=== PATIENT | female | born 1985 | race Caucasian/White ===

== ENCOUNTER 2019-05-28 16:38 | Outpatient (CLI) | payer OTHER, SELFPAY ==
[2019-05-28 17:50] VITALS: BP 97/55; PULSE 95
== END 2019-05-28 18:00 | disposition home or self-care (01) ==
LOC: ANHOBOP 17:44 → ANHOBPP 17:46
PROVIDERS: Visit Provider Obstetrics & Gynecology
DX: Z36.89 Encounter for other specified antenatal screening (principal)
CPT/HCPCS: 59025; 84112; 99199

== ENCOUNTER 2019-06-19 13:38 | Outpatient (RCR) | payer OTHER, SELFPAY ==
[2019-05-29 16:51] VITALS: BP 125/77; PULSE 91
--- NOTE | ~2019-06-19 | US_ITS ---
EXAMINATION: US OB BPP wo non-stress DATE: 05/29/2019 16:36 INDICATION: Positive nonstress test. TECHNIQUE: Real-time pelvic ultrasound was performed. The interpreting radiologist was not present fo r the study. COMPARISON: None. FINDINGS: There is a single living fetus in vertex presentation. The placenta is posterior fundal. heart rate is 135 beats per minute (bpm). Biophysical profile performed by the technologist: breathing (30 sec sustained breathing in 30 minutes): 2 out of 2 movement (3 gross body movements in 30 minutes): 2 out of 2 tone (one episode of oubhctv-wfebkpbgs-ehxliic limb movement): 2 out of 2 Amniotic fluid pocket (2 cm): 2 out of 2 Total score: 8 out of 8 IMPRESSION: 1. Single living fetus in vertex presentation with heart rate of 135 bpm. 2. Biophysical profile 8 out of 8. Reviewed, dictated and finalized at location A. TIVE DEVELOPER
[2019-06-19 15:25] VITALS: BP 114/61; PULSE 76
== END 2019-06-29 07:59 | disposition home or self-care (01) ==
LOC: ANHOBOP 13:38
PROVIDERS: Visit Provider Obstetrics & Gynecology
DX: O26.893 Other specified pregnancy related conditions, third trimester (principal); Z3A.34 34 weeks gestation of pregnancy; O16.3 Unspecified maternal hypertension, third trimester; O76 Abnormality in fetal heart rate and rhythm complicating labor and delivery; Z3A.37 37 weeks gestation of pregnancy
CPT/HCPCS: 59025; 76819

== ENCOUNTER 2019-06-23 12:33 | Observation (INO) | payer OTHER, SELFPAY ==
[2019-06-23 13:01] VITALS: BP 112/72; PULSE 81
[2019-06-23 13:16] VITALS: BP 100/52; PULSE 78
--- NOTE | 2019-06-23 13:25 | OBADM ---
This patient, Matilda Gomes, admitted to the OB room Labor/Delivery/Recovery 119 for observation. Patient/family oriented to hospital policies and general routines including ID bracelet, bed and alarms, visiting hours, pain management, procedures, bathroom and other care routines, personal items, smoking policy, room service/diet, and visiting hours. Patient/Family are encouraged to report perceived risks to care and to ask questions if they do not understand what they are told or what they should do.
[2019-06-23 13:32] VITALS: BP 112/72; PULSE 82
--- NOTE | 2019-06-25 08:00 | PM.OBTRLD ---
OB - Triage/Final Diagnosis Final Diagnosis (1) False labor: Code(s): O47.9 - False labor, unspecified Status: Acute
== END 2019-06-23 13:40 | disposition home or self-care (01) ==
PROVIDERS: Admitting Provider Obstetrics & Gynecology; Visit Provider Obstetrics & Gynecology
DX: O47.1 False labor at or after 37 completed weeks of gestation (principal); Z3A.37 37 weeks gestation of pregnancy
CPT/HCPCS: 59025; G0378; G0379

== ENCOUNTER 2019-06-25 12:25 | Outpatient (CLI) | payer OTHER, SELFPAY ==
[2019-06-25 13:22] LABS: Hematocrit 35.5 % (37.0-47.0); Hemoglobin 11.8 g/dL (12.0-15.0); Mean Corpuscular HGB Conc 33.2 g/dl (32-36); Mean Corpuscular Hemoglobin 28.1 pg (26-34); Mean Corpuscular Volume 84.5 fl (80-100); Mean Platelet Volume 11.2 fl (7.4-10.4); Platelet Count Result 209 k/mm3 (150-375); Red Cell Distribution Width 14.6 % (11.5-14.5); White Blood Count 13.2 K/mm3 (4.5-10.0)
--- NOTE | 2019-06-25 16:12 | HP_ITS ---
DATE OF SERVICE: 06/26/2019 HISTORY: The patient is 33-year-old G4, P2-0-1-2 at 38 weeks and 0 days, being admitted for an elective repeat plus tubal ligation. She is being delivered at 38 weeks due to chronic hypertension. Her has been complicated by elevated blood pressure starting in the 1st early 2nd trimester, and she has had one value in the severe range, but in general they have been normal to mildly elevated. She denies headaches or visual changes. She is feeling occasional contractions. No vaginal bleeding. No leakage of fluid. MEDICAL HISTORY: Significant for hypertension. CURRENT MEDICATIONS: vitamin and ranitidine. ALLERGIES: NO KNOWN DRUG ALLERGIES. PAST SURGICAL HISTORY: x2 and laparoscopic cholecystectomy. OB HISTORY: She has had 2 and the 1st was for arrest of dilation and that baby weighed 9 pounds 3 ounces. The 2nd was an elective repeat and she has had 1 miscarriage. 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 SOCIAL HISTORY: Negative for tobacco, alcohol, or drug use. REVIEW OF SYSTEMS: Negative. PHYSICAL EXAMINATION: VITAL SIGNS: Her weight is 335, blood pressure 142/89. GENERAL: No apparent distress. HEART: Regular rate and rhythm. LUNGS: Clear to auscultation. ABDOMEN: Gravid, soft, nontender, nondistended. EXTREMITIES: Nontender with 1+ edema. ASSESSMENT AND PLAN: 1. G4, P2-0-1-2 at 38 weeks gestation with history of 2 prior C-sections and chronic hypertension. Plan is to proceed with repeat . 2. Chronic hypertension. Blood pressure in general is mildly elevated. She is asymptomatic. We will plan to watch her blood pressure closely and watch for any signs or symptoms of preeclampsia. 3. status is reassuring. 4. Desires sterilization. She signed consent on May 14 in the office for tubal ligation and has had expressed a continued desire for that, so we are planning to tie her tubes along with her . 5. GBS is negative. D I MT: Jovon
[2019-06-26 08:44] LABS: Rapid Plasma Reagin Non-Reactive (NonReactive)
== END 2019-06-25 12:26 | disposition home or self-care (01) ==
PROVIDERS: Visit Provider Obstetrics & Gynecology
DX: Z01.818 Encounter for other preprocedural examination (principal)
CPT/HCPCS: 36415; 85027; 86592; 86850; 86900; 86901

== ENCOUNTER 2019-06-26 09:46 | Inpatient (IN) | payer OTHER, SELFPAY ==
[2019-06-26] VITALS (49 sets, daily range): BP systolic 90–141; BP diastolic 49–98; PULSE 25–90; RESP 15–20; TEMP 35.9–36.3; O2SAT 82–100; BMI 56.9
--- NOTE | 2019-06-26 01:01 | HP_ITS ---
This report was moved to the correct visit, [id number], on June 30, 2019. Original report was signed by Dr. Mckenzie Lucero on June 26, 2019 at 0101. DATE OF SERVICE: 06/26/2019 HISTORY: The patient is 33-year-old G4, P2-0-1-2 at 38 weeks and 0 days, being admitted for an elective repeat plus tubal ligation. She is being delivered at 38 weeks due to chronic hypertension. Her has been complicated by elevated blood pressure starting in the 1st early 2nd trimester, and she has had one value in the severe range, but in general they have been normal to mildly elevated. She denies headaches or visual changes. She is feeling occasional contractions. No vaginal bleeding. No leakage of fluid. MEDICAL HISTORY: Significant for hypertension. CURRENT MEDICATIONS: vitamin and ranitidine. ALLERGIES: NO KNOWN DRUG ALLERGIES. PAST SURGICAL HISTORY: x2 and laparoscopic cholecystectomy. OB HISTORY: She has had 2 and the 1st was for arrest of dilation and that baby weighed 9 pounds 3 ounces. The 2nd was an elective repeat and she has had 1 miscarriage. 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 SOCIAL HISTORY: Negative for tobacco, alcohol, or drug use. REVIEW OF SYSTEMS: Negative. PHYSICAL EXAMINATION: VITAL SIGNS: Her weight is 335, blood pressure 142/89. GENERAL: No apparent distress. HEART: Regular rate and rhythm. LUNGS: Clear to auscultation. ABDOMEN: Gravid, soft, nontender, nondistended. EXTREMITIES: Nontender with 1+ edema. ASSESSMENT AND PLAN: 1. G4, P2-0-1-2 at 38 weeks gestation with history of 2 prior C-sections and chronic hypertension. Plan is to proceed with repeat . 2. Chronic hypertension. Blood pressure in general is mildly elevated. She is asymptomatic. We will plan to watch her blood pressure closely and watch for any signs or symptoms of preeclampsia. 3. status is reassuring. 4. Desires sterilization. She signed consent on May 14 in the office for tubal ligation and has had expressed a continued desire for that, so we are planning to tie her tubes along with her . 5. GBS is negative. D I MT: AQuity Dictated By: Mckenzie Lucero MD 06/25/19 1310 Transcribed Date/Time: 06/25/19 1605 Signed By: Mckenzie Lucero MD 06/26/19 0101 [facility]
--- NOTE | 2019-06-26 09:13 | WPDANESEPPF ---
Anes - Initial Pre Proc Eval Procedure: Operation Date: 06/26/19 12:00 Proposed Procedures p Repeat Section with Bilateral Tubal Ligation - Mckenzie Lucero MD Date/Time: 06/26/19 09:13 Surgeon: Mckenzie Lucero MD Pre Op Diagnosis: Patient Data Age: 33 Gender: F Height: Weight: Allergies Allergy/AdvReac Type Severity Reaction Status Date / Time No Known Allergies Allergy Unverified 11/17/14 13:24 Home Medications Medication Instructions Recorded Confirmed Type PNV cmb#95-ferrous fumarate-FA 1 tablet PO DAILY 06/12/19 06/12/19 History [] Patient hx anesthesia problems: none Family hx anesthesia problems: none PMF Past Medical History Medical History (Updated 06/26/19 @ 11:31 by Mitchell Richards MD) Hypertension affecting Morbid obesity with BMI of 50.0-59.9, adult Surgical History Surgical History (Updated 06/26/19 @ 09:14 by Mitchell Richards MD) Previous section 2 Social History Social History Smoking status: Never smoker Substance use: never Gender identity (if verbalized by the patient): Female Spiritual care concerns: No Anes - Eval Final PreProcedure Day of Procedure 06/26/19 09:13 Patient weight: super morbidly obese Heart: regular rate and rhythm Lungs: clear to auscultation and normal air movement Airway: Mallampati scale class II Neurological: alert and oriented Last oral intake: >/= 8 hours ASA classification: III Emergent: no Anesthetic plan: proceed Anesthesia type and monitoring: regional spinal Informed Consent: The patient's anesthetic plan and its attendant risks and benefits were discussed with the patient/family/POA. Questions were solicited and answers provided to the satisfaction of the patient/family/POA.
--- NOTE | 2019-06-26 10:45 | LDADM ---
This patient, Matilda Gomes, was admitted to OB Post 117 on 06/26/19 at 09:46. Plans for labor, pain management and were discussed with patient. Patient/family oriented to hospital policies and general routines including ID bracelet, bed and alarms, visiting hours, pain management, procedures, bathroom and other care routines, personal items, smoking policy, room service/diet and guest tray routines, infant security routines, and visiting hours. Patient/Family are encouraged to report perceived risks to care and to ask questions if they do not understand what they are told or what they should do. See OBIX for further documentation.
[2019-06-26] MEDS: LACTATED RINGERS 1,000 ML 999 ML IV CONT ×2 (11:06→12:30)
--- NOTE | 2019-06-26 11:54 | WPDHPUPDATE1 ---
History and Physical Update Update Date/Time: 06/26/19 11:54 History and Physical has been reviewed, including an updated exam of the patient. There are NO changes in the patient's condition. Risks, benefits, and alternatives have been discussed and questions answered. Patient agrees to proceed with procedure.
--- NOTE | 2019-06-26 11:56 | PM.OP ---
Procedure Note - Brief Procedure Note - Brief Date of procedure: 06/26/19 Pre-op diagnosis: desires sterilization Post-op diagnosis: same Procedure performed: Repeat LTCS + BTL Anesthesia: spinal Surgeon: Mckenzie Lucero MD Estimated blood loss (mL): 400 Drains: Yes (Ramos) Packing: No Pathology: yes Complications: No immediate complications Condition: stable Disposition: floor Findings: Female , cephalic presentation, Apgars 8/9, weight 6# 11oz, normal uterus, tubes, ovaries
[2019-06-26] MEDS: ceFAZolin 3 GM/D5W 100 ML 100 ML IVPB (12:05)
--- NOTE | 2019-06-26 16:15 | PC.NURSE ---
Patient transferred to post room # via stretcher. Support person and family and infant present. Oriented to unit, room 283 information board, rooming in, admission packet and security measures. Patient verbalizes understanding.
--- NOTE | 2019-06-26 16:28 | OP_ITS ---
DATE OF PROCEDURE: 06/26/2019 PREOPERATIVE DIAGNOSES: Intrauterine at 38 weeks, history of 2 prior C-sections, chronic hypertension, desires sterilization. POSTOPERATIVE DIAGNOSES: Intrauterine at 38 weeks, history of 2 prior C-sections, chronic hypertension, desires sterilization. PROCEDURE PERFORMED: Repeat low transverse section and bilateral tubal ligation. ANESTHESIA: Spinal. ESTIMATED BLOOD LOSS: 400 mL. COMPLICATIONS: None. FINDINGS: Female infant cephalic presentation. Apgars 8 and 9. Weight 6 pounds 11 ounces. Normal uterus, tubes, and ovaries. INDICATIONS: A 33-year-old G4, P2-0-1-2 at 38 weeks gestation and with history of 2 prior C-sections, has expressed the desire for repeat and tubal ligation throughout her . She has chronic hypertension. No evidence of preeclampsia and that is why she was recommended to deliver at 38 weeks. DESCRIPTION OF PROCEDURE: For the procedure, she was taken to the operating room, where spinal anesthesia was obtained and found to be adequate. She was prepared and draped in the normal sterile fashion in the dorsal supine position with a leftward tilt. A Pfannenstiel skin incision was made over her prior incision with a scalpel and extended to the underlying layer of fascia with the scalpel. The fascia was incised in the midline with the scalpel and extended laterally with the Wolf scissors. The underlying rectus muscles were dissected off bluntly and sharply and in the midline. The peritoneum was entered sharply and extended inferiorly and superiorly with good visualization of the bladder. The bladder blade was inserted. The vesicouterine peritoneum was tented up and entered sharply with the Metzenbaum scissors and extended laterally. The bladder flap was created digitally. The bladder blade was reinserted and the lower uterine segment was incised in a transverse fashion with the scalpel. The incision was digitally stretched in a cephalocaudad direction. The membranes were ruptured with clear fluid noted. The 's head was delivered atraumatically. The shoulders and body were delivered easily. The cord was clamped x2 and cut and the was passed to the awaiting nurse. Cord gas and cord blood were obtained. The placenta was manually extracted. Uterus was exteriorized and cleared of all clots and debris. The uterine incision was closed using 0 Vicryl in a running locked fashion. Attention was then turned to the fallopian tube. The right fallopian tube was grasped with a Vero clamp and a defect made in the mesosalpinx with Bovie cautery. Two free ties of 0 plain gut were placed around the tube and the intervening segment of tube was excised. The same procedure was then performed on the left fallopian tube. Both fallopian tubes were noted to be hemostatic. The uterine incision was reinspected and also found to be hemostatic. The uterus was then returned to the abdomen. The gutters were cleared of all clots and debris. The rectus muscles were inspected. Any bleeding points were cauterized. The rectus muscles were reapproximated using an 0 Vicryl jovkcw-jq-krrdx suture. The fascia was then closed using 0 Vicryl in a running fashion. The subcutaneous tissue was irrigated. Any bleeding points were cauterized. The subcutaneous tissue was reapproximated in 2 layers using 2-0 Vicryl zthiln-un-jkaua sutures and the skin was then closed with Insorb absorbable priya. She tolerated the procedure well. Sponge, lap, needle, and instrument counts were correct x2 and she was taken to the recovery room in stable condition. Marjorie I MT: Jovon
[2019-06-26] MEDS: IBUPROFEN 600 MG TABLET PO (19:36)
[2019-06-26] MEDS: DEXTROSE 5%/0.45% SOD CHL 1,000 ML 125 ML IV CONT (20:12)
[2019-06-26] MEDS: SIMETHICONE 80 MG TAB.CHEW PO (21:05)
[2019-06-27 04:30] VITALS: BP 139/89; PULSE 81; RESP 18; TEMP 36.2; O2SAT 100
[2019-06-27] MEDS: IBUPROFEN 600 MG TABLET PO ×4 (04:37→23:40)
[2019-06-27] MEDS: SIMETHICONE 80 MG TAB.CHEW PO (04:37)
[2019-06-27 05:51] LABS: Eosinophils Absolute Auto 0.1 K/mm3 (0-0.3); Hemoglobin 10.7 g/dL (12.0-15.0); Immature Granulocyte Absolute 0.04 K/mm3 (0.00-0.031); Immature Granulocyte Percent A 0.4 % (0-0.5); Lymphocytes Absolute Auto 1.74 K/mm3 (0.9-3.2); Lymphocytes Percent Auto 15.3 % (18.3-44.2); Mean Corpuscular HGB Conc 32.4 g/dl (32-36); Mean Corpuscular Hemoglobin 27.6 pg (26-34); Mean Corpuscular Volume 85.1 fl (80-100); Mean Platelet Volume 11.3 fl (7.4-10.4); Monocytes Absolute Auto 0.7 K/mm3 (0.1-0.6); Monocytes Percent Auto 5.7 % (2.6-8.5); Neutrophils Absolute Auto 8.8 K/mm3 (1.3-6.7); Neutrophils Percent Auto 77.6 % (45.5-73.1); Platelet Count Result 174 k/mm3 (150-375); Red Blood Count 3.88 M/mm3 (4.2-5.4); Red Cell Distribution Width 14.8 % (11.5-14.5); White Blood Count 11.3 K/mm3 (4.5-10.0)
[2019-06-27 06:44] VITALS: BP 103/70; PULSE 73; RESP 18; TEMP 36.3; O2SAT 99
[2019-06-27] MEDS: DOCUSATE SODIUM 100 MG CAPSULE PO ×2 (06:47→17:07)
[2019-06-27] MEDS: MULTIVIT/MIN/PREN/FOL AC/IRON TABLET 1 TAB PO (06:47)
[2019-06-27] MEDS: LANOLIN (LANSINOH) 7.5 GM CREAM 1 APPLIC TOPICAL (06:49)
--- NOTE | 2019-06-27 08:20 | WPDANLDNPN2 ---
Anes-Prog Note L&D-Neuraxial Date/Time: 06/27/19 08:20 Neuraxial medications: intrathecal PF morphine Opiod-related complaints: none Patient feedback: Patient satisfied with post-operative pain management.
--- NOTE | 2019-06-27 08:21 | WPDANLDPN2 ---
Anes-Prog Note L&D Date/Time: 06/27/19 08:21 Comfortable throughout: section Neuraxial method: spinal Epidural/Spinal procedure site: clean & non-tender Neuro status: Neuro function grossly intact. Cardiovascular status: normal Respiratory status: normal Airway patency: baseline Mental status: baseline Post-Op hydration status: normal Vital Signs: Last Vital Signs Temp 36.2 C L 06/27/19 04:30 Pulse 81 06/27/19 04:30 Resp 18 06/27/19 04:30 BP 139/89 06/27/19 04:30 Pulse Ox 100 06/27/19 04:30 I/O: Intake & Output 06/26/19 06/27/19 06/27/19 23:59 07:59 15:59 Intake Total 2400 1150 Output Total 1213 900 Balance 1187 250 Post-procedural complaints: none Patient feedback: Patient satisfied with anesthetic care.
--- NOTE | 2019-06-27 09:57 | PM.OBPNVD ---
OB - PN: Subj Subjective Date/time seen: 06/27/19 09:57 OB - PN: Obj Data Labs CBC & Chem 7: 06/27/19 05:34 Labs: Laboratory Results - last 24 hr 06/27/19 05:34 WBC 11.3 H RBC 3.88 L Hgb 10.7 L Hct 33.0 L MCV 85.1 MCH 27.6 MCHC 32.4 RDW 14.8 H Plt Count 174 MPV 11.3 H Immature Gran % (Auto) 0.4 Neut % (Auto) 77.6 H Lymph % (Auto) 15.3 L [place] % (Auto) 5.7 Eos % (Auto) 1.0 Baso % (Auto) 0.0 L Lymph # (Auto) 1.74 [place] # (Auto) 0.7 H Eos # (Auto) 0.1 Baso # (Auto) 0.0 Abs Immat Gran (auto) 0.04 H Absolute Neuts (auto) 8.8 H Absolute Nucleated RBC 0.0 Nucleated RBC % 0.0 OB - PN A/P Plan day: 1 Plan: routine care Comments: Milk of mag ordered. Nurse will notify me if no results by this evening. Time Spent With Patient Time: Total time spent is greater than 50% in coordination of care (as documented) at patient's floor/unit and/or counseling patient: Review of Systems Review of Systems: All systems reviewed & are unremarkable except as noted in HPI and below Gastrointestinal: Gastrointestinal: Reports constipation (Pt states no bm in 2 weeks) Exam Const: General: comfortable Resp: Effort & Inspection: normal respiratory effort Cardio: Rate: regular rate GI: Auscultation: normal bowel sounds (slightly hypoactive but normal for post op.) Psych: Appearance: grossly normal Mental Status: mental status grossly normal Affect: normal affect Attitude: cooperative Judgement: Good judgement present (Psych)
[2019-06-27] MEDS: MAGNESIUM HYDROXIDE SUSP 30 ML UDC PO ×2 (10:18→21:34)
[2019-06-27 12:10] VITALS: BP 121/68; PULSE 75; RESP 20; TEMP 36.1; O2SAT 95
[2019-06-27 15:15] VITALS: BP 113/65; PULSE 75; PULSE 85; RESP 20; TEMP 36.1; O2SAT 95
[2019-06-27 21:30] VITALS: BP 122/79; PULSE 75; RESP 18; TEMP 36.2; O2SAT 100
[2019-06-28] VITALS (8 sets, daily range): BP systolic 102–143; BP diastolic 58–81; PULSE 66–81; RESP 16–18; TEMP 35.7–36.8; O2SAT 97–99
--- NOTE | 2019-06-28 01:57 | PC.NURSE ---
Daylight Savings Time For Daylight Savings Time Beginning in the Spring - Clocks are moved ahead. For [facility], the time of change occurs at 0200 hrs. Time is taken from the server security administrator. This entry on the patient's chart recognizes the change in time reflected during documentation. Example: 2 entries for vital signs may be charted for 0200 hrs.
[2019-06-28] MEDS: SIMETHICONE 80 MG TAB.CHEW PO (03:43)
[2019-06-28] MEDS: BISACODYL 10 MG SUPPOSITORY RECTAL (03:48)
[2019-06-28] MEDS: MULTIVIT/MIN/PREN/FOL AC/IRON TABLET 1 TAB PO (08:45)
[2019-06-28] MEDS: IBUPROFEN 600 MG TABLET PO ×3 (08:45→21:00)
[2019-06-28] MEDS: DOCUSATE SODIUM 100 MG CAPSULE PO ×2 (08:45→15:27)
--- NOTE | 2019-06-28 10:23 | PM.OBPNVD ---
OB - PN: Subj Subjective Date/time seen: 06/28/19 10:23 OB - PN: Obj Data Labs CBC & Chem 7: 06/27/19 05:34 OB - PN A/P Plan day: 2 Plan: routine care Comments: Digital exam and enema. Time Spent With Patient Time: Total time spent is greater than 50% in coordination of care (as documented) at patient's floor/unit and/or counseling patient: Time with patient: 15 - 25 minutes Review of Systems Review of Systems: All systems reviewed & are unremarkable except as noted in HPI and below Gastrointestinal: Gastrointestinal: Reports tenesmus and Reports constipation Exam Const: Other: A little uncomfortable d/t constipation. Resp: Effort & Inspection: normal respiratory effort Auscultation: clear to auscultation bilaterally Cardio: Rate: regular rate GI: Auscultation: abnormal bowel sounds Other: Hypoactive. I would still consider somewhat normal d/t post op status. : General: Yes bladder normal to palpation Skin: General skin exam: erythema (on abdomen in pattern of surgery drape) Wounds: no wounds ( incision dry and intact) Extrem: General: normal to inspection, normal exam except as noted and no calf tenderness Psych: Appearance: grossly normal Affect: normal affect Attitude: cooperative Judgement: Good judgement present (Psych)
[2019-06-28] MEDS: MINERAL OIL 30 ML UDC (12:00)
[2019-06-28] MEDS: DIBUCAINE 1% OINTMENT 30 GM TUBE 1 APPLIC (12:01)
[2019-06-28] MEDS: WITCH HAZEL 40 PADS 1 PAD (12:01)
[2019-06-28] MEDS: HYDROCORTISONE 1% 30 GM CREAM 1 APPLIC TOPICAL (15:23)
--- NOTE | 2019-06-28 16:56 | PC.NURSE ---
1030 Noel MANDUJANO visited pt; asked that pt be checked for a rectal impaction. This was done at this time. pt has large amount of soft, but very formed stool in rectum. nurse able to remove soft soft stool, and liquid stool and large amount of urine also passed as pt tried to bear down. Pt very uncomfortable and tearful through the procedure. after 20-25 minutes, pt up to bathroom, and showered. Pt allowed to rest. 1600 Pt reports that she has passed a small amount of stool, formed and liquid, but still uncomfortable. Pt given Fleet enema per orders of Elidia; pt held enema only about 1-2 minutes; she reports passing a little stool, but still feeling uncomfortable. 1630 Phone report to Noel; Fleet enema can be repeated tonight.
[2019-06-29 04:25] VITALS: BP 126/82; PULSE 71; RESP 17; TEMP 36.1; O2SAT 97
[2019-06-29] MEDS: IBUPROFEN 600 MG TABLET PO (05:00)
[2019-06-29 07:35] VITALS: BP 134/79; PULSE 64; RESP 18; TEMP 37.1; O2SAT 99
--- NOTE | 2019-06-29 07:48 | PM.OBPNVD ---
OB - PN: Subj Subjective Date/time seen: 06/29/19 07:48 Patient comments: no complaints, pain well controlled, tolerating diet, flatus present and other (Lochia less than menses. Ambulating and voiding without problems) baby status: doing well Narrative: She still feels like hard stool is present, and she has liquid coming out from the enema. She has nausea at times when she tries to have BM but no emesis. She is able to eat OB - PN: Obj Data Labs CBC & Chem 7: 06/27/19 05:34 OB - PN A/P Assessment and Plan (1) Constipation: Code(s): K59.00 - Constipation, unspecified Status: Acute Assessment and Plan: She'd like to try another suppository to see if that will help evacuate more of the stool Plan day: 3 (s/p section, doing well and ready to be discharged home) Plan: routine care, discharge home and other (Follow up in office in 1 week) Time Spent With Patient Time: Total time spent is greater than 50% in coordination of care (as documented) at patient's floor/unit and/or counseling patient: Exam Const: General: no acute distress Resp: Auscultation: clear to auscultation bilaterally Cardio: Rate: regular rate Rhythm: regular rhythm GI: Inspection: non-distended, incision (Intact without erythema, drainage, or induration) and other (Fundus firm and nontender below umbilicus) GI Palp: Yes abdominal tenderness (appropriate) and Yes Soft to palpation Extrem: General: no edema
--- NOTE | 2019-06-29 07:50 | PM.OBDSVD ---
OB - DS: Summary OB Procedures : [facility] Mgmt OB Procedures Intrapartum: OB Procedures: : P.P. tubal ligation Peripartum Data Infant Delivery Method: Section Procedures: Procedures Operation Date: 06/26/19 12:00 Actual Procedures Side Surgeon p Section Not Applicable Mckenzie Lucero MD complications: other (constipation) Status at Discharge Functional status at discharge: independent ambulation Overall status at discharge: patient is progressing back to baseline Time Spent with Patient Time attestation: Total time spent providing and/or coordinating discharge services: Time spent: Less than 30 minutes DS: Data Data Completed and Pending Pending studies at discharge: Pending at discharge 06/26/19 15:06 Surgical [PTH] Routine Discharge Plan Discharge Attending physician on discharge: Mckenzie Lucero Discharging Clinician: Mckenzie Lucero Patient Disposition: Home, Self-Care Activity: may shower and pelvic rest Diet: regular Wound Care Instructions: incision open to air Patient Instructions: Antibiotic Form Stand Alone Forms: General Discharge Information Follow-up/Referrals: Mckenzie Lucero MD [Physician] - 1 Week Discharge Medications: New hydrocodone-acetaminophen 5-325 mg Tablet 1 tab PO Q3H PRN (Reason: Moderate Pain (4-6)) Qty: 30 RF: 0 docusate sodium 100 mg Capsule 100 mg PO BID Qty: 0 RF: 0 ibuprofen 600 mg Tablet 600 mg PO Q6H PRN (Reason: Cramping) Qty: 60 RF: 0 Continued PNV cmb#95-ferrous fumarate-FA [] 28 mg iron- 800 mcg Tablet 1 tablet PO DAILY RF: 0 Date of admission: 06/26/19 09:46 Primary Care Provider: UNKNOWN,DOCTOR Admitting Provider: Mckenzie Lucero Attending physician on admission: Mckenzie Lucero
[2019-06-29] MEDS: DOCUSATE SODIUM 100 MG CAPSULE PO (08:52)
[2019-06-29] MEDS: SIMETHICONE 80 MG TAB.CHEW PO (08:52)
[2019-06-29] MEDS: MULTIVIT/MIN/PREN/FOL AC/IRON TABLET 1 TAB PO (08:52)
--- NOTE | 2019-06-29 09:00 | PC.NURSE ---
consult with pt., mother reports she is and supplementing. Mother breast and bottle fed other children due to low milk supply. Mother has a HX of marked breast asymmetry, discussed how this may impact breastmilk production. Mother states with first children she breastfed and pumped to push supply and relied heavily on formula. Both children were not satisfied with and had weight loss. Mother plans to breastfeed and bottle feed this child. Observed mother is able to independently latch infant with appropriate positioning/alignment. She denies any nipple discomfort, is feeding as required and waking to feed if needed. Infant has had several effective feedings followed with supplementation in the past 24 hours, and is currently meeting outcomes for weight, output, jaundice and feeding frequencies. Mother states she feels confident to continue current feedingp preston of breast/bottle at home. Reviewed transition to breast milk, signs of adequate intake, and engorgement/relief. Instructed to call ICP if intake/output less than required. Reviewed regular medications mother is taking. Information provided per Geri. Reviewed community resources on the [facility] website and in the Mom/Baby guide. Information on outpatient services provided. Mother has no further questions at this time.
--- NOTE | 2019-06-29 09:00 | PC.NURSE ---
Mother does not wish to pump with this child, she will supplement as much as desires.
--- NOTE | 2019-06-29 11:35 | PC.NURSE ---
Patient viewed the discharge video Mother & Baby Care, The First Two Weeks . Patient was given the opportunity and encouraged to ask questions. Patient verbalized understanding of information shared and has been given the mother/baby guide for home reference.
[2019-06-30 11:48] VITALS: BP 123/83; PULSE 70; RESP 18; TEMP 36.6
== END 2019-06-29 11:20 | disposition home or self-care (01) | DRG 540 ==
LOC: ANHOBPP 16:04 → ANHOB2 16:20
PROVIDERS: Admitting Provider Obstetrics & Gynecology; Visit Provider Obstetrics & Gynecology
PROC: 10D00Z1 Extraction of Products of Conception, Low, Open Approach (ICD-10-PCS; CPT 59514; principal; 2019-06-26 12:00)
DX: O10.92 Unspecified pre-existing hypertension complicating childbirth (principal); O34.211 Maternal care for low transverse scar from previous cesarean delivery; Z3A.38 38 weeks gestation of pregnancy; Z37.0 Single live birth; Z30.2 Encounter for sterilization; E66.01 Morbid (severe) obesity due to excess calories; O99.214 Obesity complicating childbirth; K59.00 Constipation, unspecified; O99.619 Diseases of the digestive system complicating pregnancy, unspecified trimester
CPT/HCPCS: 36415; 85025; 88302; 88307; A9270; J0131; J0690; J1200; J2274; J2370; J2405; J2590; J7120

== ENCOUNTER 2019-07-03 16:58 | Emergency (ER) | payer OTHER, SELFPAY ==
--- NOTE | ~2019-07-03 | XR_ITS ---
XR abdomen/kub 1V 07/03/2019 17:56 INDICATION: Constipation TECHNIQUE: KUB COMPARISON: None FINDINGS: Bowel gas pattern is normal. Moderate colonic fecal loading. There are cholecystectomy clip s. There is no evidence of free air, mass, organomegaly, ascites or obstruction. No abnormal calculi are seen. The bones appear intact. IMPRESSION: 1: No acute abdominal abnormality identified. Moderate colonic fecal loading. Reviewed, dictated and finalized at location A.
[2019-07-03 17:01] VITALS: BP 150/97; PULSE 70; RESP 19; TEMP 37.2; O2SAT 100
--- NOTE | 2019-07-03 17:40 | ED.GENADULT ---
HPI - General Adult General Chief complaint: Unspecified Stated complaint: constipation Time Seen by Provider: 07/03/19 17:18 Source: patient Mode of arrival: ambulatory Limitations: no limitations History of Present Illness HPI narrative: A 33 y/o female pt presents to the ED, with c/o constipation x 1 month. Pt states that she has not had a bowel movement x 1 month other than what was dug out of her by her PCP last Saturday. Pt states she gave herself a suppository on 06/19/2019, but did not have a bowel movement. She notes being admitted to the hospital on 06/23/2019 d/t a failed stress test and gave via caesarean section on 06/26/2019. She notes giving herself an enema on Saturday (06/27/2019) and was able to keep it in for 5-10 minutes, but was unsuccessful. Pt notes bloating and ABD pain, but denies vaginal bleeding. She states she was prescribed opiates following her caesarean section, but she states she has not been taking as many as prescribed d/t her constipation. Pt notes taking magnesium citrate with no relief. MD complaint: Constipation Onset (ago): month(s) (1) Quality: other (bloating) Associated symptoms: other (ABD pain) Treatments prior to arrival: other (Enema, suppository, magnesium citrate) Related Data Allergies Allergy/AdvReac Type Severity Reaction Status Date / Time No Known Allergies Allergy Verified 07/03/19 17:04 Review of Systems Review of Systems: All systems reviewed & are unremarkable except as noted in HPI and below Gastrointestinal: Gastrointestinal: Reports abdominal pain, Reports bloating and Reports constipation Genitourinary: Genitourinary: Denies abnormal vaginal bleeding [facility] Past Medical History Medical History Hypertension affecting Morbid obesity with BMI of 50.0-59.9, adult Surgical History Surgical History Previous section 2 Social History Social History Smoking status: Never smoker Substance use: never Gender identity (if verbalized by the patient): Female Spiritual care concerns: No Exam Narrative: Exam Narrative: GENERAL: Well-appearing, morbidly obese, and in no acute distress. HEAD: Normocephalic, atraumatic. ENT: Mucous membranes moist. CHEST: Clear to auscultation. No respiratory distress. HEART: Regular rate and rhythm. Normal peripheral pulses. ABDOMEN: Soft, nontender, nondistended, well healing surgical scar with scabing at the midline. Rectal with small nonthrombosed nonbleeding hemorrhoid at the 3 o'clock position ambulating in the right lateral decubitus position. Firm rectal stool ball noted on VIN. EXTREMITIES: Normal range of motion. No edema. SKIN: Warm, dry, no rash. NEURO: Alert and oriented x3. Course Course Emergency Course: Still difficulty evacuating stool after Colace enema and manual disimpaction. I will prescribe patient a bowel prep for home which should help clear her out. Vital Signs Vital signs: Vital Signs Temperature 99 F 07/03/19 17:01 Pulse Rate 70 07/03/19 17:01 Respiratory Rate 19 07/03/19 17:01 Blood Pressure 150/97 H 07/03/19 17:01 Pulse Oximetry 100 07/03/19 17:01 Temperature 99 F 07/03/19 17:01 Pulse Rate 66 07/03/19 21:54 Respiratory Rate 18 07/03/19 21:54 Blood Pressure 155/90 H 07/03/19 21:54 Pulse Oximetry 100 07/03/19 21:54 Medical Decision Making Vital Signs Vital Signs: Vital Signs Temperature 99 F 07/03/19 17:01 Pulse Rate 70 07/03/19 17:01 Respiratory Rate 19 07/03/19 17:01 Blood Pressure 150/97 H 07/03/19 17:01 Pulse Oximetry 100 07/03/19 17:01 Temperature 99 F 07/03/19 17:01 Pulse Rate 66 07/03/19 21:54 Respiratory Rate 18 07/03/19 21:54 Blood Pressure 155/90 H 07/03/19 21:54 Pulse Oximetry 100 07/03/19 21:54 Imaging D
[2019-07-03] MEDS: DOCUSATE SODIUM 400 MG/400 ML ENEMA RECTAL (19:54)
--- NOTE | 2019-07-03 21:53 | PC.NURSE ---
pt only had small amount solid stool after enema. mostly liquid.
[2019-07-03 21:54] VITALS: BP 155/90; PULSE 66; RESP 18; O2SAT 100
== END 2019-07-03 23:34 | disposition home or self-care (01) ==
PROVIDERS: Emergency Provider Emergency Medicine; PCP Obstetrics & Gynecology
DX: K59.00 Constipation, unspecified (principal); E66.9 Obesity, unspecified; Z68.43 Body mass index [BMI] 50.0-59.9, adult
CPT/HCPCS: 74018; 99283

== ENCOUNTER 2022-02-27 14:04 | Emergency (ER) | payer OTHER, SELFPAY ==
[2022-02-27 14:31] VITALS: BP 153/104; PULSE 87; RESP 16; TEMP 36.2; O2SAT 100
== END 2022-02-27 16:05 | disposition left against medical advice (07) ==
DX: H92.02 Otalgia, left ear (principal)
CPT/HCPCS: 99199

== ENCOUNTER 2022-02-28 09:52 | Emergency (ER) | payer OTHER, SELFPAY ==
--- NOTE | ~2022-02-28 | XR_ITS ---
EXAMINATION: XR chest 1V portable DATE: 02/28/2022 10:25 INDICATION: Cough. TECHNIQUE: A single frontal view of the chest was obtained. COMPARISON: None. FINDINGS: The chest demonstrates clear lungs without pneumonia, pleural effusion, or pneumothorax. Th e heart size is normal. IMPRESSION: 1. No acute cardiopulmonary disease. Reviewed, dictated and finalized at location A. [employer]
[2022-02-28 10:00] VITALS: BP 150/106; PULSE 93; RESP 16; TEMP 36.1; O2SAT 98
--- NOTE | 2022-02-28 10:14 | ED.GENADULT ---
HPI - General Adult General Chief complaint: Ear Stated complaint: cant hear out of left ear, and coughing up stuff, History of Present Illness HPI narrative: Matilda presented to the ED with a day of pain and decreased hearing in the left ear as well as a cough for 1 week. There is no CP, SOB, N/V or diarrhea. She has been putting cotton in the ear as well. Related Data Allergies Allergy/AdvReac Type Severity Reaction Status Date / Time No Known Allergies Allergy Verified 02/28/22 10:05 Review of Systems Review of Systems: All systems reviewed & are unremarkable except as noted in HPI and below [facility] Past Medical History Medical History (Updated 02/28/22 @ 10:43 by Jasbir Randolph DO) Hypertension affecting Morbid obesity with BMI of 50.0-59.9, adult Surgical History Surgical History Previous section 2 Family History Family History Sibling Seizure disorder Mother Hypertension Father Diabetes mellitus Social History Social History Smoking status: Never smoker Substance use: never Gender identity (if verbalized by the patient): Female Spiritual care concerns: No Exam Const: General: healthy appearing and no acute distress Nutritional Appearance: obese Orientation/consciousness: patient oriented x3 HENMT: Head: normal to inspection Ears: external ears normal Face and sinus: normal facial exam Mouth: Yes Normal oral and palatal mucosa present Other: External ear canal was red and tender on the left. Could not visualize the TM Eyes: Conjunctivae: conjunctivae normal Pupils: Equal, round and reactive pupils present EOM: EOMs intact bilaterally Neck: Neck: normal visual inspection Chest: Chest palpation & inspection: normal inspection of the chest Resp: Effort & Inspection: normal respiratory effort Auscultation: clear to auscultation bilaterally Cardio: Rate: regular rate Rhythm: regular rhythm GI: Inspection: non-distended GI Palp: Yes Soft to palpation, No Tenderness to palpation present (GI) and No Guarding due to palpation present (GI) Back/Spine/Pelvis: Back: no CVA tenderness Skin: General skin exam: normal color Neuro: General: patient oriented x3 Extrem: General: normal to inspection Psych: Mental Status: mental status grossly normal Course Course Emergency Course: EXAMINATION: XR chest 1V portable DATE: 02/28/2022 10:25 INDICATION: Cough. TECHNIQUE: A single frontal view of the chest was obtained. COMPARISON: None. FINDINGS: The chest demonstrates clear lungs without pneumonia, pleural effusion, or pneumothorax. The heart size is normal. IMPRESSION: 1. No acute cardiopulmonary disease. Vital Signs Vital signs: Vital Signs Temperature 96.9 F L 02/28/22 10:00 Pulse Rate 93 02/28/22 10:00 Respiratory Rate 16 02/28/22 10:00 Blood Pressure 150/106 H 02/28/22 10:00 Pulse Oximetry 98 02/28/22 10:00 Oxygen Delivery Room Air 02/28/22 10:00 Temperature 96.9 F L 02/28/22 10:00 Pulse Rate 93 02/28/22 10:00 Respiratory Rate 16 02/28/22 10:00 Blood Pressure 150/106 H 02/28/22 10:00 Pulse Oximetry 98 02/28/22 10:00 Oxygen Delivery Room Air 02/28/22 10:00 Medical Decision Making Vital Signs Vital Signs: Vital Signs Temperature 96.9 F L 02/28/22 10:00 Pulse Rate 93 02/28/22 10:00 Respiratory Rate 16 02/28/22 10:00 Blood Pressure 150/106 H 02/28/22 10:00 Pulse Oximetry 98 02/28/22 10:00 Oxygen Delivery Room Air 02/28/22 10:00 Temperature 96.9 F L 02/28/22 10:00 Pulse Rate 93 02/28/22 10:00 Respiratory Rate 16 02/28/22 10:00 Blood Pressure 150/106 H 02/28/22 10:00 Pulse Oximetry 98 02/28/22 10:00 Oxygen Delivery Room Air 02/28/22 10:00 Lab Data Labs: Lab Results 02/28/22 Ra
[2022-02-28 11:03] LABS: Influenza A QL RT-PCR Negative (Negative); Influenza B QL RT-PCR Negative (Negative); SARS-CoV-2 RNA PCR Negative (Negative)
[2022-02-28 11:04] LABS: RSV RNA, RT-PCR Negative (Negative)
[2022-02-28 11:23] VITALS: BP 134/93; PULSE 90; RESP 20; TEMP 36.1; O2SAT 99
== END 2022-02-28 11:25 | disposition home or self-care (01) ==
PROVIDERS: Emergency Provider Family Medicine
DX: H60.92 Unspecified otitis externa, left ear (principal); R05.9 Cough, unspecified; Z20.822 Contact with and (suspected) exposure to COVID-19
CPT/HCPCS: 71045; 87502; 87634; 99283; U0003; U0005

== ENCOUNTER 2024-10-05 10:27 | Emergency (ER) | payer OTHER, SELFPAY ==
--- NOTE | ~2024-10-05 | XR_ITS ---
EXAMINATION: XR knee LT 3V DATE: 10/05/2024 11:05 INDICATION: Chronic left knee pain. Twisting injury. TECHNIQUE: AP, lateral and sunrise views of the left knee were obtained COMPARISON: None. FINDINGS: Alignment is normal. No fracture. Small marginal osteophytes in all 3 compartments of the knee consi stent with at least mild tricompartmental osteoarthritis. No joint effusion. Soft tissues are unremar kable. IMPRESSION: 1. Mild tricompartmental osteoarthritis at the left knee. No knee joint effusion or acute osseous abn ormality. Reviewed, dictated and finalized at location A. IMPRESSION: 1. Mild tricompartmental osteoarthritis at the left knee. No knee joint effusio n or acute osseous abnormality.
[2024-10-05 10:28] VITALS: BP 135/97; PULSE 91; RESP 18; TEMP 36.6; O2SAT 98
--- NOTE | 2024-10-05 10:35 | ED.LOWEXIN ---
HPI - Extremity Injury (Lower) General Chief Complaint: Extremity Injury, Lower Stated Complaint: left knee pain & possible UTI Time Seen by Provider: 10/05/24 10:35 Source: patient Mode of arrival: ambulatory History of Present Illness HPI Narrative: 39 years old white female morbidly obese, 178.4 kilos complaining of knees pain for while. Last night was sleeping, turning in bed felt a pop at the back of the left knee. worse when she tries to bend it. She denied recent injuries. Patient also complaining of frequent urination. She denies any fever, chills, nausea, vomiting Related Data Allergies Allergy/AdvReac Type Severity Reaction Status Date / Time No Known Allergies Allergy Verified 10/05/24 10:30 Review of Systems Review of Systems: All systems reviewed & are unremarkable except as noted in HPI and below [facility] Past Medical History Medical History (Updated 10/05/24 @ 12:08 by Uzair Kaminski MD) Morbid obesity with BMI of 50.0-59.9, adult Hypertension affecting Surgical History Surgical History Previous section 2 Family History Family History Sibling Seizure disorder Mother Hypertension Father Diabetes mellitus Social History Social History Smoking status: Never smoker Substance use: never Gender identity (if verbalized by the patient): Female Spiritual care concerns: No Exam Narrative: General appearance: Well-developed, well-nourished Skin: Normal color Head: Normocephalic, nontraumatic Eyes: Clear conjunctiva ENT: Oropharynx normal, ears normal, nose normal Neck: Supple, nontender Chest and respiratory: Airway patent, no respiratory distress, no accessory muscle use Heart: Regular rate/rhythm Abdomen: Soft, nontender, no organomegaly, quiet bowel sounds Vascular: Normal peripheral pulses, normal capillary refill. 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 is normal as tested, no gross motor deficit Course Vital Signs Vital signs: Vital Signs Temperature 36.6 C 10/05/24 10:28 Pulse Rate 91 10/05/24 10:28 Respiratory Rate 18 06/16/25 10:28 Blood Pressure 135/97 H 10/05/24 10:28 Pulse Oximetry 98 10/05/24 10:28 Oxygen Delivery Room Air 10/05/24 10:28 Temperature 36.6 C 10/05/24 10:28 Pulse Rate 91 10/05/24 10:28 Respiratory Rate 18 10/05/24 10:28 Blood Pressure 135/97 H 10/05/24 10:28 Pulse Oximetry 98 10/05/24 10:28 Oxygen Delivery Room Air 10/05/24 10:28 MDM - Extremity Injury (Lower) MDM Narrative Medical decision making narrative: differential diagnosis left knee sprain / strain X-ray of the left knee showed Advanced osteoarthritis which high likely secondary to morbid obesity Overweight is the underlying cause of patient complaining of chronic knee pain. Urinalysis showed no evidence of infection Diagnosis osteoarthritis, knee sprain/ strain Discharged on diclofenac Discharge the pt was discharged to home.the pt,s condition upon discharge was fair,education was provided to the pt in reference to the final impression,discharge study results,treatment,prognosis and need for follow up . Differential Diagnosis Differential diagnosis: Likely other ( left knee sprain/ strain, urinary tract infection) Medical Records Attestation: I reviewed the patient's medical records. Lab Data Attestation: I reviewed the patient's lab results. Labs: Lab Results 10/05/24 Range/Units 10:30 Urine Color Light yellow (Yellow) Urine Appearance Clear (Clear) Urine pH 6.0 (5.0-8.0) Ur Specific [place] 1.020 (1.010-1.020) Urine Protein Negative (Negative) Urine Glucose (UA) Negative (Negative) Urine Ketones Negative (Negative) Ur Blood (Man) Negative (Negative) Urine Nitrate Negative (Negative) Urine Bilirubin Negative (Negative) Urine Urobilinogen 0.2 (0.2-1.0) mg/dL Leukocyte Esterase Rfl Negative (Negative) ROBB/UL Imaging Data My impression: Impressions Knee X-Ray 10/05/24 11:54 IMPRESSION: 1. Mild tricompartmental osteoarthritis at the left knee. No knee joint effusion or acute osseous abnormality. Radiologist's impression: Critical Care Time Critical Care Time Critical Care Time: No Discharge Plan Discharge Clinical Impression: Knee pain, left Patient Disposition: Home Condition: Stable Instructions: Osteoarthritis (DC), Knee Pain (ED) Additional Instructions: Return if symptoms are worsening , call your family physician for appointment, take Tylenol as as needed for aches and pain, continue home medications. Patient Language: Italian Prescriptions: New diclofenac sodium 75 mg tablet,delayed release (DR/EC) 75 mg PO BID PRN (Reason: pain) Qty: 20 0RF Follow-up/Referrals: UNKNOWN,DOCTOR [Non-Staff] - Stand Alone Forms: Work/School Release IP
[2024-10-05] MEDS: HYDROcodone/acetaminophen (*CRX) 5-325 MG TABLET 1 TAB PO (10:39)
[2024-10-05] MEDS: IBUPROFEN 600 MG TABLET PO (10:41)
[2024-10-05 10:56] LABS: Add Urine Microscopic? NO; Appearance Urine Clear (Clear); Bilirubin Urine Negative (Negative); Blood Urine Negative (Negative); Color Urine Light Yellow (Yellow); Glucose Urine UA Negative (Negative); Ketones Urine Negative (Negative); Leukocyte Esterase Ur Negative LEU/UL (Negative); Nitrate Urine Negative (Negative); Protein Urine Negative (Negative); Urobilinogen Urine 0.2 mg/dL (0.2-1.0)
--- OUTSIDE RECORDS SUMMARY | 2024-10-05 11:22 | XMS_ITS | Clinical Summary ---
Author Organization [facility] Address [address] [address] Care Team Providers Care Manager Surgery Name Role Phone Unavailable Primary Care Provider Unavailabl e Source Comments [facility],non-owned Affiliates and Associated Physician Practices is amultiple site organization consisting of ambulatory clinics and hospital sitesin [place], [place], [place] and [place]. This disclosure is being madepursuant to the Care Everywhere program and may not contain all information available regarding this patient. Last updated 18.[facility] Allergies No known active allergies Active Problems Problem Noted Date Diagnosed Date Obesity affecting in third trimester 0 05/18/2019 Encounter for anatomic survey 05/05/2019 Overview (05/05/2019): AB+ Neg/ Im/-/-/- 1st and 2nd trimester screens Neg CF + Family History Medical History Relation Name Comments Diabetes - Type 2 Father CAD (Coronary Artery Disease) Maternal Grandmother Hypertension Mother Diabetes - Type 2 Paternal Grandmother Seizures Sister Relation Name Status Comments Father Maternal Grandmother Mother Paternal Grandmother Sister Social History Tobacco Use Types Packs/Day Years Used Date Smoking Tobacco: Never Assessed Comments No Sex and Gender Information Value Date Recorded Sex Assigned at Not on file Legal Sex Female 1:45 PM OPERATIONS EXAMINER Gender Identity Not on file Sexual Orientation Not on file Last Filed Vital Signs Vital Sign Reading Time Taken Comments Blood Pressure 133/91 06/09/2019 11:25 AM OPERATIONS EXAMINER Pulse 77 06/09/2019 11:25 AM OPERATIONS EXAMINER Temperature - - Respiratory Rate - - Oxygen Saturation - - Inhaled Oxygen Concentration - - Weight - - Height - - Body Mass Index - - Plan of Treatment Health Maintenance Due Date Last Done Comments LIPID TESTING 1984 MAMMOGRAM 1984 HIV SCREENING 08/19/1999 HEPATITIS C SCREENING 08/14/2002 DTAP/TDAP/TD VACCINES (1 - Tdap) 08/19/2003 HEPATITIS B VACCINE (1 of 3 - 19+ 3-dose series) 08/19/2003 COVID-19 VACCINE (1 - 2023-2 5 season) 2023 DEPRESSION SCREENING 04/22/2024 INFLUENZA VACCINE (Season Ended) 2024 ZOSTER VACCINE (1 of 2) 2034 HIB VACCINE Aged Out No longer eligi ble based on patient's age to complete this topic HPV VACCINE Aged Out No longer eligi ble based on patient's age to complete this topic MENINGOCOCCAL (Group B) VACC INE SHARED DECISION-MAKING Aged Out No longer eligibl e based on patient's age to complete this topic MENINGOCOCCAL GROUPS A/C/Y/W VACCINE Aged Out No longer eligible b ased on patient's age to complete this topic PNEUMOCOCCAL VACCINE Aged Out No long er eligible based on patient's age to complete this topic Insurance
[2024-10-05 12:21] VITALS: BP 134/97; PULSE 75; RESP 18; TEMP 36.5; O2SAT 98
--- OUTSIDE RECORDS SUMMARY | 2024-10-05 12:22 | XMS_ITS | Clinical Summary ---
Author Organization [facility] Address [address] [place] [address] Care Team Providers Care Machine Cleaner Name Role Phone Unavailable Primary Care Provider Unavailabl e Source Comments [facility],non-owned Affiliates and Associated Physician Practices is amultiple site organization consisting of ambulatory clinics and hospital sitesin [place], [place], [place] and [place]. This disclosure is being madepursuant to the Care Everywhere program and may not contain all information available regarding this patient. 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
== END 2024-10-05 12:25 | disposition home or self-care (01) ==
PROVIDERS: Emergency Provider Emergency Medicine; PCP Family Medicine
DX: M25.562 Pain in left knee (principal)
CPT/HCPCS: 73562; 81003; 99283; A9270